=== PATIENT | male | born 1980 | race Caucasian/White ===

== ENCOUNTER 2020-06-24 08:28 | Inpatient (IN) ==
[2020-06-24] MEDS ORDERED: SODIUM CHLORIDE 0.9% 1,000 ML IV STA ×3 (09:07→12:47)
[2020-06-24 09:53] LABS: Alanine Aminotransferase 785 U/L (16-61); Albumin 3.8 G/DL (3.4-5.0); Alkaline Phosphatase 278 U/L (45-117); Blood Urea Nitrogen 14 MG/DL (7-18); Calcium 7.7 MG/DL (8.5-10.1); Carbon Dioxide 6 MMOL/L (21-32); Estimated Glom Filtration Rate 72 ML/MIN; Glucose 126 MG/DL (74-106); Osmolality,Calculated 270.2 MOS/KG (273-304); Sodium 134 MMOL/L (136-145); Total Protein 7.4 G/DL (6.4-8.2)
[2020-06-24 09:55] LABS: Aspartate Amino Transferase 1086 U/L (0-37)
[2020-06-24 10:19] LABS: Basophils # 0.1 10*3/uL (0.0-0.2); Basophils % 0.6 % (0.0-0.8); Eosinophils % 0.2 % (0.00-10.9); Immature Granulocytes % 2.1 %; Immature Granulocytes Absolute 0.37 #; Lymphocytes % 33.5 % (21.2-54.2); Mean Corpuscular HGB Conc 30.6 GM/DL (32-36); Mean Corpuscular Volume 103.8 FL (87-102); Mean Platelet Volume 10.8 FL (9.6-12.0); Monocytes % 9.4 % (1.7-12.7); NRBC # 0.02 10*3/uL; Neutrophils % 54.2 % (38.7-73.9); Platelet Count 217 T/CUMM (130-400); Red Blood Count 4.72 MC/CUMM (3.8-5.5); Red Cell Distribution Width 14.7 % (9.3-17.3)
[2020-06-24 10:30] LABS: Band Neutrophils 3 % (0-10); Lymphocytes 24 % (20-55); Metamyelocytes 1 %; Segmented Neutrophils 58 % (50-85); Total Cells Counted 100
[2020-06-24 10:31] LABS: Platelet Estimate Normal; Polychromasia Slight; Stomatocytes 1+
[2020-06-24] MEDS ORDERED: HYDROmorphone 2 MG/1 ML VIAL IV STA ×2 (10:36→11:37)
[2020-06-24] MEDS ORDERED: ONDANSETRON 4 MG/2 ML VIAL IV ONE ×2 (10:36→11:37)
[2020-06-24] MEDS ORDERED: ONDANSETRON 4 MG/2 ML VIAL ONE (10:37)
[2020-06-24] MEDS ORDERED: HYDROmorphone 2 MG/1 ML VIAL ONE (10:37)
[2020-06-24] MEDS ORDERED: PIPERACILLIN/TAZOBACTAM 3,375 MG in SODIUM CHLORIDE 0.9% 100 ML IV STA ×2 (11:00→11:14)
[2020-06-24] MEDS ORDERED: PIPERACILLIN/TAZOBACTAM 3,375 MG VIAL IV ONE ×2 (11:03→11:07)
[2020-06-24 11:06] LABS: ABG HCO3 1.3 MMOL/L (20-26); ABG Oxygen Saturation 96.3 % (95-100); ABG PO2 165.7 MM HG (80-95); ABG TCO2 1.7 MMOL/L (23-27); Pt O2 Delivery Device Room Air
[2020-06-24 11:08] LABS: ABG Base Excess -34.7 MMOL/L (-2.5-2.5)
[2020-06-24 11:12] LABS: ABG PCO2 11.4 MM HG (35-48); ABG PH 6.685 (7.35-7.45)
[2020-06-24] MEDS ORDERED: SODIUM BICARBONATE 50 MEQ/50 ML VIAL IV STA ×2 (11:12→11:37)
[2020-06-24] MEDS ORDERED: SODIUM CHLORIDE 0.9% 500 ML IV STA ×2 (11:13→11:44)
[2020-06-24 11:23] LABS: Barbiturates Screen,Urine Negative (Negative); Benzodiazepines Screen,Urine Negative (Negative); Cannabinoid Screen,Urine Negative (Negative); Opiate Screen,Urine Negative (Negative); Phencyclidine Screen,Urine Negative (Negative)
[2020-06-24 11:24] LABS: Bacteria,Urine Occasional /HPF (Few); Bilirubin,Urine Negative (Negative); Blood, Urine Moderate mg/dL (Negative); Glucose,Urine (UA) Negative (Negative); Hyaline Casts,Urine 3 /LPF (0-3); Ketones,Urine 20 mg/dL (Negative); Mucus,Urine Occasional /LPF (Occasional); Nitrite,Urine Negative (Negative); Protein,Urine 30 MG/DL; RBC,Urine 1 /HPF (0-4); Squamous Epithelial Cell,Urine Occasional /HPF (0-10); Urine Appearance Slightly Hazy (Clear); Urine Color Yellow (Yellow); Urine Specific Gravity 1.012 (1.001-1.035); Urine Urobilinogen < 2.0 EU/DL (0.2-1.0)
[2020-06-24] MEDS ORDERED: HYDROmorphone 2 MG/1 ML VIAL IM STA (12:00)
[2020-06-24] MEDS ORDERED: VANCOMYCIN INJ 1,250 MG in SODIUM CHLORIDE 0.9% 250 ML IV STA (12:23)
[2020-06-24 13:39] LABS: INR 1.5; PT Patient Result 15.9 SECS (10.5-12.0)
[2020-06-24] MEDS ORDERED: ALBUTEROL 2.5 MG/3 ML NEB RESP TX PRN (13:42)
[2020-06-24] MEDS ORDERED: PANTOPRAZOLE 40 MG VIAL IV SCH (14:00)
[2020-06-24] MEDS ORDERED: ENOXAPARIN 40 MG/0.4 ML SYRINGE SUBCUT SCH (14:00)
[2020-06-24] MEDS ORDERED: VANCOMYCIN INJ 1,250 MG in SODIUM CHLORIDE 0.9% 250 ML IV SCH (14:00)
[2020-06-24] MEDS ORDERED: HALOPERIDOL 5 MG/ML AMP IM PRN (14:33)
[2020-06-24] MEDS: SODIUM BICARB INJ 100 MEQ in DEXTROSE 5% 1,000 ML IV SCH ×2 (15:03→21:35)
[2020-06-24] MEDS ORDERED: HYDROmorphone 2 MG/1 ML VIAL IV PRN (15:04)
[2020-06-24] MEDS: DIAZEPAM 5 MG TABLET PO SCH ×3 (15:05→22:16)
[2020-06-24] MEDS: PANTOPRAZOLE 40 MG VIAL IV SCH (15:05)
[2020-06-24] MEDS: CALCIUM CARBONATE CHEW 500 MG TABLET PO SCH ×3 (15:05→21:55)
[2020-06-24 15:16] LABS: Albumin 2.7 G/DL (3.4-5.0); Calcium 6.6 MG/DL (8.5-10.1); Osmolality,Calculated 279.3 MOS/KG (273-304); Potassium 4.7 MMOL/L (3.5-5.1); Total Protein 5.6 G/DL (6.4-8.2)
[2020-06-24 15:17] LABS: CKMB % 1.1 %; High Sensitive Troponin I* 59.4 ng/L (0-78)
[2020-06-24] MEDS ORDERED: SODIUM BICARBONATE 50 MEQ/50 ML VIAL IV ONE (15:29)
[2020-06-24] MEDS ORDERED: cefTRIAXone 2,000 MG in SODIUM CHLORIDE 0.9% 100 ML IV ONE (16:33)
[2020-06-24] MEDS ORDERED: DIGOXIN 0.5 MG/2 ML AMP IV ONE ×2 (17:19→18:00)
[2020-06-24 17:26] LABS: Albumin 2.7 G/DL (3.4-5.0); Bilirubin,Total 1.4 MG/DL (0.2-1.0); Calcium 6.7 MG/DL (8.5-10.1); Osmolality,Calculated 276.5 MOS/KG (273-304); Potassium 4.9 MMOL/L (3.5-5.1); Total Protein 5.5 G/DL (6.4-8.2)
[2020-06-24] MEDS: CALCIUM GLUCONATE 2,000 MG in SODIUM CHLORIDE 0.9% 100 ML IV SCH ×2 (18:36→22:13)
[2020-06-24] MEDS: SODIUM CHLORIDE 0.9% IV SCH (18:36)
[2020-06-24] MEDS: ACYCLOVIR IV SCH (18:36)
[2020-06-24] MEDS ORDERED: LACTATED RINGERS 2,000 ML IV ONE (19:06)
[2020-06-24 20:00] LABS: ABG HCO3 7.2 MMOL/L (20-26); ABG Oxygen Saturation 93.7 % (95-100); ABG PCO2 24.8 MM HG (35-48); ABG PO2 88.8 MM HG (80-95); ABG TCO2 5.8 MMOL/L (23-27); Allen Test Positive; Pt O2 Delivery Device Room Air
[2020-06-24 20:02] LABS: ABG PH 6.984 (7.35-7.45)
[2020-06-24 20:33] LABS: Albumin 2.3 G/DL (3.4-5.0); Bilirubin,Total 1.6 MG/DL (0.2-1.0); Calcium 6.7 MG/DL (8.5-10.1); Osmolality,Calculated 264.7 MOS/KG (273-304); Potassium 5.1 MMOL/L (3.5-5.1); Total Protein 4.7 G/DL (6.4-8.2)
[2020-06-24 21:02] LABS: Hepatitis B Core IgM Quant 0.15 Index; Hepatitis B Surface Ag Quant < 0.10 Index; Hepatitis B Surface Ag Result Non-Reactive (NonReactive); Hepatitis C Virus Ab Quant 0.11 Index; Hepatitis C Virus Ab Result Non-Reactive (NonReactive)
[2020-06-24] MEDS ORDERED: SODIUM CHLORIDE 0.9% 1,000 ML IV ONE (21:04)
[2020-06-24] MEDS: SODIUM BICARB INJ 150 MEQ in DEXTROSE 5% 850 ML IV SCH ×2 (21:30→21:55)
[2020-06-24] MEDS ORDERED: THIAMINE INJ 100 MG, FOLIC ACID INJ 1 MG, MAGNESIUM SULF INJ 2 GM, MULTIVITAMIN INJ 10 ... IV SCH (22:00)
[2020-06-24] MEDS: ONDANSETRON 4 MG/2 ML VIAL IV PRN (22:00)
[2020-06-24 23:06] LABS: Calcium 6.2 MG/DL (8.5-10.1); Osmolality,Calculated 267.8 MOS/KG (273-304); Potassium 5.1 MMOL/L (3.5-5.1)
[2020-06-24] MEDS ORDERED: LABETALOL 20 MG/4 ML SYRINGE IV ONE (23:24)
[2020-06-24] MEDS: LABETALOL 20 MG/4 ML SYRINGE IV ONE (23:31)
[2020-06-25] MEDS: LABETALOL 20 MG/4 ML SYRINGE IV ONE (00:09)
[2020-06-25 00:38] LABS: ABG Base Excess -11.7 MMOL/L (-2.5-2.5); ABG HCO3 11.7 MMOL/L (20-26); ABG PCO2 22.3 MM HG (35-48); ABG PH 7.339 (7.35-7.45); ABG PO2 148.4 MM HG (80-95); ABG TCO2 12.4 MMOL/L (23-27); Allen Test Positive
[2020-06-25] MEDS: CALCIUM CARBONATE CHEW 500 MG TABLET PO SCH ×6 (01:10→21:32)
[2020-06-25] MEDS: SODIUM CHLORIDE 0.9% IV SCH (01:10)
[2020-06-25] MEDS: ACYCLOVIR IV SCH (01:10)
[2020-06-25] MEDS: ONDANSETRON 4 MG/2 ML VIAL IV PRN ×2 (02:50→17:09)
[2020-06-25] MEDS: DIAZEPAM 5 MG TABLET PO SCH ×2 (02:55→08:05)
[2020-06-25] MEDS: PANTOPRAZOLE 40 MG VIAL IV SCH ×2 (02:55→15:08)
[2020-06-25 03:25] LABS: Albumin 2.2 G/DL (3.4-5.0); Bilirubin,Total 2.4 MG/DL (0.2-1.0); Osmolality,Calculated 266.2 MOS/KG (273-304); Potassium 4.9 MMOL/L (3.5-5.1); Total Protein 4.4 G/DL (6.4-8.2)
[2020-06-25 03:33] LABS: Calcium 5.7 MG/DL (8.5-10.1)
[2020-06-25 03:53] LABS: ABG Base Excess -4.7 MMOL/L (-2.5-2.5); ABG HCO3 20.5 MMOL/L (20-26); ABG Oxygen Saturation 97.2 % (95-100); ABG PCO2 28.7 MM HG (35-48); ABG PH 7.423 (7.35-7.45); ABG PO2 82.4 MM HG (80-95); Allen Test Positive
[2020-06-25] MEDS ORDERED: CALCIUM GLUCONATE 2,000 MG in SODIUM CHLORIDE 0.9% 100 ML IV ONE (04:30)
[2020-06-25] MEDS: SODIUM BICARB INJ 150 MEQ in DEXTROSE 5% 850 ML IV SCH (04:40)
[2020-06-25] MEDS: SODIUM BICARB INJ 100 MEQ in DEXTROSE 5% 1,000 ML IV SCH (04:51)
[2020-06-25 05:13] LABS: Basophils % 0.3 % (0.0-0.8); Eosinophils # 0.2 10*3/uL (0.0-0.87); Eosinophils % 6.8 % (0.00-10.9); Hematocrit 29.1 VOL% (42.0-52.0); Immature Granulocytes % 1.7 %; Immature Granulocytes Absolute 0.06 #; Lymphocytes # 0.6 10*3/uL (1.4-4.0); Lymphocytes % 15.9 % (21.2-54.2); Mean Corpuscular HGB Conc 34.7 GM/DL (32-36); Mean Corpuscular Volume 92.4 FL (87-102); Mean Platelet Volume 9.9 FL (9.6-12.0); Monocytes % 3.1 % (1.7-12.7); NRBC # 0.04 10*3/uL; Neutrophils % 72.2 % (38.7-73.9)
[2020-06-25 05:17] LABS: Hemoglobin 10.1 GM/DL (14.0-18.0); Platelet Count 56 T/CUMM (130-400); Red Blood Count 3.15 MC/CUMM (3.8-5.5); White Blood Count 3.5 T/CUMM (4-12)
[2020-06-25 05:20] LABS: INR 1.6; PT Patient Result 17.2 SECS (10.5-12.0)
[2020-06-25 05:33] LABS: Band Neutrophils 2 % (0-10); Eosinophils 1 % (0-10); Lymphocytes 14 % (20-55); Segmented Neutrophils 81 % (50-85); Total Cells Counted 100
[2020-06-25 05:33] LABS: Albumin 2.1 G/DL (3.4-5.0); Bilirubin,Total 2.5 MG/DL (0.2-1.0); Osmolality,Calculated 268.1 MOS/KG (273-304); Potassium 4.5 MMOL/L (3.5-5.1); Total Protein 4.3 G/DL (6.4-8.2)
[2020-06-25 05:34] LABS: Hypochromasia 1+; Microcytosis 1+; Platelet Estimate Decreased
[2020-06-25 06:16] LABS: Basophils % 0.2 % (0.0-0.8); Hematocrit 34.4 VOL% (42.0-52.0); Immature Granulocytes % 1.7 %; Immature Granulocytes Absolute 0.07 #; Lymphocytes # 0.7 10*3/uL (1.4-4.0); Lymphocytes % 15.6 % (21.2-54.2); Mean Corpuscular Volume 99.1 FL (87-102); Mean Platelet Volume 10.6 FL (9.6-12.0); Monocytes % 4.1 % (1.7-12.7); NRBC # 0.04 10*3/uL; Neutrophils % 78.4 % (38.7-73.9); Platelet Count 57 T/CUMM (130-400); Red Blood Count 3.47 MC/CUMM (3.8-5.5); Red Cell Distribution Width 14.4 % (9.3-17.3); White Blood Count 4.2 T/CUMM (4-12)
[2020-06-25 06:44] LABS: Lactic Acid 8.9 MMOL/L (0.4-2.0)
[2020-06-25 06:51] LABS: Alanine Aminotransferase 555 U/L (16-61); Albumin 2.1 G/DL (3.4-5.0); Alkaline Phosphatase 88 U/L (45-117); Blood Urea Nitrogen 19 MG/DL (7-18); Calcium 6.2 MG/DL (8.5-10.1); Carbon Dioxide 20 MMOL/L (21-32); Estimated Glom Filtration Rate 30 ML/MIN; Glucose 266 MG/DL (74-106); Osmolality,Calculated 265.2 MOS/KG (273-304); Potassium 4.6 MMOL/L (3.5-5.1); Sodium 127 MMOL/L (136-145); Total Protein 4.6 G/DL (6.4-8.2)
[2020-06-25 06:54] LABS: Band Neutrophils 3 % (0-10); Eosinophils 3 % (0-10); Hypochromasia 1+; Lymphocytes 18 % (20-55); Metamyelocytes 5 %; Microcytosis 1+; Nucleated Red Blood Cells 2 (0-5); Segmented Neutrophils 69 % (50-85); Total Cells Counted 100
[2020-06-25 07:04] LABS: Aspartate Amino Transferase 1237 U/L (0-37)
[2020-06-25 08:15] LABS: INR 1.5; PT Patient Result 16.1 SECS (10.5-12.0)
[2020-06-25] MEDS: SODIUM BICARB INJ 50 MEQ in SODIUM CHLORIDE 0.45% 1,000 ML IV SCH ×4 (08:44→23:40)
[2020-06-25] MEDS ORDERED: ACYCLOVIR IV SCH (09:00)
[2020-06-25] MEDS ORDERED: SODIUM CHLORIDE 0.9% IV SCH (09:00)
[2020-06-25] MEDS ORDERED: MAGNESIUM SULF RIDER 2 GM/50 ML PREMIX IV ONE (09:01)
[2020-06-25] MEDS ORDERED: GLUCAGON 1 MG VIAL IM PRN (09:06)
[2020-06-25] MEDS ORDERED: DEXTROSE 50% 25 GM/50 ML VIAL IV PRN (09:06)
[2020-06-25] MEDS: chlordiazePOXIDE 25 MG CAPSULE PO SCH ×2 (09:59→17:09)
[2020-06-25] MEDS: INSULIN LISPRO 100 UNIT/ML SUBCUT SCH ×3 (12:16→20:16)
[2020-06-25] MEDS ORDERED: ENOXAPARIN 30 MG/0.3 ML SYRINGE SUBCUT SCH (14:00)
[2020-06-25 19:17] LABS: CKMB % 0.7 %
[2020-06-25] MEDS: THIAMINE INJ 100 MG, FOLIC ACID INJ 1 MG, MAGNESIUM SULF INJ 2 GM in SODIUM CHLORIDE 0.... IV SCH (21:32)
[2020-06-25] MEDS ORDERED: LABETALOL 20 MG/4 ML SYRINGE IV ONE (23:05)
[2020-06-26] MEDS: chlordiazePOXIDE 25 MG CAPSULE PO SCH ×4 (01:00→20:34)
[2020-06-26] MEDS: CALCIUM CARBONATE CHEW 500 MG TABLET PO SCH ×6 (01:58→21:18)
[2020-06-26] MEDS: PANTOPRAZOLE 40 MG VIAL IV SCH ×2 (03:30→14:52)
[2020-06-26] MEDS ORDERED: LORazepam 2 MG/1 ML VIAL IV ONE (04:09)
[2020-06-26 05:26] LABS: Basophils % 0.1 % (0.0-0.8); Eosinophils % 0.3 % (0.00-10.9); Hematocrit 26.7 VOL% (42.0-52.0); Hemoglobin 9.5 GM/DL (14.0-18.0); Immature Granulocytes % 7.7 %; Immature Granulocytes Absolute 0.58 #; Lymphocytes % 13.5 % (21.2-54.2); Mean Corpuscular HGB Conc 35.6 GM/DL (32-36); Mean Corpuscular Volume 87.8 FL (87-102); Mean Platelet Volume 12.1 FL (9.6-12.0); Monocytes % 2.1 % (1.7-12.7); NRBC # 0.02 10*3/uL; Neutrophils % 76.3 % (38.7-73.9); Platelet Count 43 T/CUMM (130-400); Red Blood Count 3.04 MC/CUMM (3.8-5.5); Red Cell Distribution Width 13.7 % (9.3-17.3); White Blood Count 7.5 T/CUMM (4-12)
[2020-06-26] MEDS: SODIUM BICARB INJ 50 MEQ in SODIUM CHLORIDE 0.45% 1,000 ML IV SCH ×3 (05:30→23:02)
[2020-06-26 05:32] LABS: INR 1.1; PT Patient Result 12.4 SECS (10.5-12.0)
[2020-06-26 05:54] LABS: Albumin 2.1 G/DL (3.4-5.0); Bilirubin,Direct 0.78 MG/DL (0.0-0.20); Bilirubin,Indirect 0.7 MG/DL (0.0-1.0); Bilirubin,Total 1.5 MG/DL (0.2-1.0); Calcium 6.3 MG/DL (8.5-10.1); Osmolality,Calculated 271.4 MOS/KG (273-304); Potassium 3.6 MMOL/L (3.5-5.1); Total Protein 4.6 G/DL (6.4-8.2)
[2020-06-26 06:09] LABS: Band Neutrophils 7 % (0-10); Hypochromasia Slight; Lymphocytes 4 % (20-55); Microcytosis Slight; Platelet Estimate Decreased; Segmented Neutrophils 87 % (50-85); Total Cells Counted 100
[2020-06-26] MEDS: INSULIN LISPRO 100 UNIT/ML SUBCUT SCH ×4 (07:55→20:32)
[2020-06-26] MEDS ORDERED: chlordiazePOXIDE 25 MG CAPSULE PO SCH (09:00)
[2020-06-26] MEDS: MULTIVITAMIN (CENTRUM) TABLET PO SCH (09:40)
[2020-06-26] MEDS: SODIUM CHLORIDE 0.9% 1,000 ML IV SCH ×2 (14:51→21:16)
[2020-06-26] MEDS: THIAMINE INJ 100 MG, FOLIC ACID INJ 1 MG, MAGNESIUM SULF INJ 2 GM in SODIUM CHLORIDE 0.... IV SCH (21:14)
[2020-06-27] MEDS: CALCIUM CARBONATE CHEW 500 MG TABLET PO SCH ×6 (02:01→21:31)
[2020-06-27] MEDS: chlordiazePOXIDE 25 MG CAPSULE PO SCH ×4 (03:05→21:31)
[2020-06-27] MEDS: PANTOPRAZOLE 40 MG VIAL IV SCH ×2 (03:06→14:42)
[2020-06-27] MEDS: SODIUM CHLORIDE 0.9% 1,000 ML IV SCH ×4 (04:31→21:34)
[2020-06-27 05:19] LABS: Basophils % 0.2 % (0.0-0.8); Eosinophils # 0.1 10*3/uL (0.0-0.87); Eosinophils % 0.8 % (0.00-10.9); Hematocrit 25.2 VOL% (42.0-52.0); Hemoglobin 8.8 GM/DL (14.0-18.0); Immature Granulocytes % 2.9 %; Immature Granulocytes Absolute 0.19 #; Lymphocytes # 1.2 10*3/uL (1.4-4.0); Mean Corpuscular HGB Conc 34.9 GM/DL (32-36); Mean Platelet Volume 13.3 FL (9.6-12.0); Monocytes % 6.2 % (1.7-12.7); Neutrophils % 71.9 % (38.7-73.9); Red Cell Distribution Width 14.3 % (9.3-17.3); White Blood Count 6.5 T/CUMM (4-12)
[2020-06-27 05:39] LABS: Bilirubin,Direct 0.66 MG/DL (0.0-0.20); Bilirubin,Indirect 0.8 MG/DL (0.0-1.0); Bilirubin,Total 1.5 MG/DL (0.2-1.0); Calcium 6.8 MG/DL (8.5-10.1); Osmolality,Calculated 286.3 MOS/KG (273-304); Potassium 3.3 MMOL/L (3.5-5.1); Total Protein 4.7 G/DL (6.4-8.2)
[2020-06-27 05:40] LABS: Band Neutrophils 1 % (0-10); Eosinophils 1 % (0-10); Hypochromasia 1+; Lymphocytes 18 % (20-55); Metamyelocytes 1 %; Microcytosis Slight; Segmented Neutrophils 75 % (50-85); Target Cells Slight; Total Cells Counted 100
[2020-06-27 05:41] LABS: Platelet Estimate Decreased
[2020-06-27 05:43] LABS: High Sensitive Troponin I* 142.8 ng/L (0-78)
[2020-06-27] MEDS: INSULIN LISPRO 100 UNIT/ML SUBCUT SCH ×4 (07:45→21:04)
[2020-06-27] MEDS: MULTIVITAMIN (CENTRUM) TABLET PO SCH (09:10)
[2020-06-27] MEDS ORDERED: LOPERAMIDE 2 MG CAPSULE PO PRN (12:33)
[2020-06-27 21:01] LABS: HIT Interpretation Negative (Negative)
[2020-06-27] MEDS: FAMOTIDINE 20 MG TABLET PO SCH (21:31)
[2020-06-28] MEDS: CALCIUM CARBONATE CHEW 500 MG TABLET PO SCH ×6 (02:24→22:22)
[2020-06-28 05:28] LABS: Basophils % 0.6 % (0.0-0.8); Eosinophils # 0.1 10*3/uL (0.0-0.87); Eosinophils % 2.1 % (0.00-10.9); Hematocrit 25.9 VOL% (42.0-52.0); Hemoglobin 8.7 GM/DL (14.0-18.0); Immature Granulocytes % 0.6 %; Immature Granulocytes Absolute 0.03 #; Lymphocytes # 1.3 10*3/uL (1.4-4.0); Lymphocytes % 24.5 % (21.2-54.2); Mean Corpuscular HGB Conc 33.6 GM/DL (32-36); Mean Corpuscular Volume 92.8 FL (87-102); Mean Platelet Volume 11.2 FL (9.6-12.0); Monocytes % 10.3 % (1.7-12.7); Neutrophils % 61.9 % (38.7-73.9); Platelet Count 45 T/CUMM (130-400); Red Blood Count 2.79 MC/CUMM (3.8-5.5); Red Cell Distribution Width 14.7 % (9.3-17.3); White Blood Count 5.3 T/CUMM (4-12)
[2020-06-28 05:49] LABS: Albumin 2.1 G/DL (3.4-5.0); Bilirubin,Total 1.5 MG/DL (0.2-1.0); Calcium 7.2 MG/DL (8.5-10.1); Osmolality,Calculated 297.4 MOS/KG (273-304); Potassium 3.5 MMOL/L (3.5-5.1); Total Protein 5.2 G/DL (6.4-8.2)
[2020-06-28 05:55] LABS: Eosinophils 2 % (0-10); Hypochromasia 1+; Lymphocytes 25 % (20-55); Microcytosis 1+; Platelet Estimate Decreased; Segmented Neutrophils 65 % (50-85); Total Cells Counted 100
[2020-06-28] MEDS: SODIUM CHLORIDE 0.9% 1,000 ML IV SCH ×2 (06:31→11:04)
[2020-06-28] MEDS: chlordiazePOXIDE 25 MG CAPSULE PO SCH ×3 (06:50→21:21)
[2020-06-28] MEDS: INSULIN LISPRO 100 UNIT/ML SUBCUT SCH ×4 (08:32→22:20)
[2020-06-28 08:54] LABS: High Sensitive Troponin I* 83.1 ng/L (0-78)
[2020-06-28] MEDS: FAMOTIDINE 20 MG TABLET PO SCH ×2 (09:35→21:20)
[2020-06-28 09:53] LABS: Platelet Count 37 T/CUMM (130-400)
[2020-06-28] MEDS: LACTATED RINGERS 1,000 ML IV SCH (15:11)
[2020-06-29] MEDS: LACTATED RINGERS 1,000 ML IV SCH ×2 (01:33→11:14)
[2020-06-29] MEDS: CALCIUM CARBONATE CHEW 500 MG TABLET PO SCH ×6 (02:37→22:45)
[2020-06-29 05:27] LABS: Basophils % 0.9 % (0.0-0.8); Eosinophils # 0.1 10*3/uL (0.0-0.87); Eosinophils % 2.6 % (0.00-10.9); Hematocrit 24.6 VOL% (42.0-52.0); Hemoglobin 8.1 GM/DL (14.0-18.0); Immature Granulocytes % 2.4 %; Immature Granulocytes Absolute 0.11 #; Lymphocytes # 1.8 10*3/uL (1.4-4.0); Lymphocytes % 39.3 % (21.2-54.2); Mean Corpuscular HGB Conc 32.9 GM/DL (32-36); Mean Corpuscular Volume 93.2 FL (87-102); Mean Platelet Volume 12.1 FL (9.6-12.0); Monocytes % 16.4 % (1.7-12.7); Neutrophils % 38.4 % (38.7-73.9); Platelet Count 61 T/CUMM (130-400); Red Blood Count 2.64 MC/CUMM (3.8-5.5); Red Cell Distribution Width 14.5 % (9.3-17.3); White Blood Count 4.6 T/CUMM (4-12)
[2020-06-29 05:46] LABS: Albumin 2.1 G/DL (3.4-5.0); Bilirubin,Total 0.7 MG/DL (0.2-1.0); Calcium 7.3 MG/DL (8.5-10.1); Osmolality,Calculated 288.8 MOS/KG (273-304); Potassium 2.9 MMOL/L (3.5-5.1)
[2020-06-29] MEDS: chlordiazePOXIDE 25 MG CAPSULE PO SCH ×3 (06:41→22:46)
[2020-06-29 07:40] LABS: Eosinophils 2 % (0-10); Lymphocytes 42 % (20-55); Metamyelocytes 1 %; Segmented Neutrophils 44 % (50-85); Total Cells Counted 100
[2020-06-29 07:41] LABS: Target Cells Few
[2020-06-29 07:42] LABS: Anisocytosis 1+; Platelet Estimate Decreased; Polychromasia Slight; Stomatocytes Few
[2020-06-29] MEDS: INSULIN LISPRO 100 UNIT/ML SUBCUT SCH ×4 (10:21→22:44)
[2020-06-29] MEDS: FAMOTIDINE 20 MG TABLET PO SCH ×2 (10:26→22:46)
[2020-06-29] MEDS ORDERED: POTASSIUM CHLORIDE RIDER 20 MEQ/100 ML PREMIX IV PRN (11:15)
[2020-06-29] MEDS ORDERED: POTASSIUM CHLORIDE RIDER 10 MEQ/100 ML PREMIX IV PRN ×2 (11:15)
[2020-06-29] MEDS: POTASSIUM CHLORIDE 20 MEQ TABLET PO PRN ×2 (12:19→19:07)
[2020-06-29] MEDS ORDERED: POTASSIUM CHLORIDE 20 MEQ TABLET PO ONE (14:00)
[2020-06-30] MEDS: CALCIUM CARBONATE CHEW 500 MG TABLET PO SCH ×6 (02:24→21:14)
[2020-06-30 05:02] LABS: Basophils % 0.9 % (0.0-0.8); Eosinophils # 0.1 10*3/uL (0.0-0.87); Eosinophils % 2.1 % (0.00-10.9); Hemoglobin 8.5 GM/DL (14.0-18.0); Immature Granulocytes % 5.3 %; Immature Granulocytes Absolute 0.23 #; Lymphocytes % 46.7 % (21.2-54.2); Mean Corpuscular Volume 90.6 FL (87-102); Mean Platelet Volume 12.3 FL (9.6-12.0); Monocytes % 18.4 % (1.7-12.7); NRBC # 0.02 10*3/uL; Neutrophils % 26.6 % (38.7-73.9); Platelet Count 111 T/CUMM (130-400); Red Blood Count 2.76 MC/CUMM (3.8-5.5); Red Cell Distribution Width 14.2 % (9.3-17.3); White Blood Count 4.4 T/CUMM (4-12)
[2020-06-30 05:15] LABS: Albumin 2.2 G/DL (3.4-5.0); Bilirubin,Total 0.5 MG/DL (0.2-1.0); Calcium 7.8 MG/DL (8.5-10.1); Potassium 3.1 MMOL/L (3.5-5.1); Total Protein 5.2 G/DL (6.4-8.2)
[2020-06-30 05:48] LABS: Band Neutrophils 1 % (0-10); Eosinophils 5 % (0-10); Hypochromasia 1+; Lymphocytes 47 % (20-55); Microcytosis 1+; Polychromasia Slight; Segmented Neutrophils 30 % (50-85); Total Cells Counted 100
[2020-06-30 05:49] LABS: Atypical Lymphocytes Few; Platelet Estimate Adequate
[2020-06-30] MEDS: chlordiazePOXIDE 25 MG CAPSULE PO SCH ×2 (06:08→13:51)
[2020-06-30] MEDS: INSULIN LISPRO 100 UNIT/ML SUBCUT SCH ×4 (08:48→20:17)
[2020-06-30] MEDS: FAMOTIDINE 20 MG TABLET PO SCH ×2 (09:47→21:13)
[2020-06-30] MEDS: POTASSIUM CHLORIDE 20 MEQ TABLET PO SCH ×2 (09:48→12:03)
[2020-06-30] MEDS ORDERED: MAGNESIUM SULF RIDER 2 GM/50 ML PREMIX IV PRN (15:11)
[2020-06-30] MEDS: chlordiazePOXIDE 10 MG CAPSULE PO SCH ×2 (17:18→21:13)
[2020-06-30] MEDS: LACTATED RINGERS 1,000 ML IV SCH ×2 (17:19→18:02)
[2020-06-30] MEDS: MAGNESIUM SULF RIDER 4 GM/100 ML PREMIX IV PRN (17:25)
[2020-07-01] MEDS: CALCIUM CARBONATE CHEW 500 MG TABLET PO SCH ×6 (01:22→21:42)
[2020-07-01 05:51] LABS: Basophils % 0.9 % (0.0-0.8); Eosinophils # 0.1 10*3/uL (0.0-0.87); Eosinophils % 1.9 % (0.00-10.9); Hematocrit 26.4 VOL% (42.0-52.0); Hemoglobin 8.9 GM/DL (14.0-18.0); Immature Granulocytes % 4.5 %; Immature Granulocytes Absolute 0.19 #; Mean Corpuscular HGB Conc 33.7 GM/DL (32-36); Monocytes % 17.6 % (1.7-12.7); Neutrophils % 27.1 % (38.7-73.9); Platelet Count 154 T/CUMM (130-400); Red Cell Distribution Width 14.4 % (9.3-17.3); White Blood Count 4.3 T/CUMM (4-12)
[2020-07-01 06:09] LABS: Calcium 8.7 MG/DL (8.5-10.1); Osmolality,Calculated 276.4 MOS/KG (273-304); Potassium 3.6 MMOL/L (3.5-5.1)
[2020-07-01] MEDS: LACTATED RINGERS 1,000 ML IV SCH ×2 (06:20→17:44)
[2020-07-01 07:01] LABS: Atypical Lymphocytes Few; Band Neutrophils 1 % (0-10); Eosinophils 4 % (0-10); Lymphocytes 49 % (20-55); Segmented Neutrophils 26 % (50-85); Total Cells Counted 100
[2020-07-01 07:02] LABS: Hypochromasia 1+; Microcytosis 1+; Platelet Estimate Adequate; Polychromasia Slight; Target Cells Slight
[2020-07-01] MEDS: INSULIN LISPRO 100 UNIT/ML SUBCUT SCH ×4 (08:36→21:46)
[2020-07-01] MEDS: chlordiazePOXIDE 10 MG CAPSULE PO SCH ×4 (09:25→21:42)
[2020-07-01] MEDS: FAMOTIDINE 20 MG TABLET PO SCH ×2 (09:25→21:42)
[2020-07-01] MEDS ORDERED: DIAZEPAM 5 MG TABLET PO ONE (12:29)
[2020-07-01] MEDS: VENLAFAXINE XR 75 MG CAPSULE PO SCH (21:42)
[2020-07-02] MEDS: LACTATED RINGERS 1,000 ML IV SCH (03:46)
[2020-07-02] MEDS: CALCIUM CARBONATE CHEW 500 MG TABLET PO SCH ×3 (05:07→09:40)
[2020-07-02] MEDS ORDERED: chlordiazePOXIDE 10 MG CAPSULE PO SCH (09:00)
[2020-07-02 09:10] LABS: Basophils % 0.7 % (0.0-0.8); Eosinophils # 0.1 10*3/uL (0.0-0.87); Eosinophils % 1.1 % (0.00-10.9); Hematocrit 28.9 VOL% (42.0-52.0); Hemoglobin 9.3 GM/DL (14.0-18.0); Immature Granulocytes % 2.6 %; Immature Granulocytes Absolute 0.14 #; Lymphocytes # 1.7 10*3/uL (1.4-4.0); Mean Corpuscular HGB Conc 32.2 GM/DL (32-36); Mean Corpuscular Volume 94.1 FL (87-102); Mean Platelet Volume 11.5 FL (9.6-12.0); Monocytes % 12.7 % (1.7-12.7); Neutrophils % 50.9 % (38.7-73.9); Platelet Count 247 T/CUMM (130-400); Red Blood Count 3.07 MC/CUMM (3.8-5.5); Red Cell Distribution Width 14.8 % (9.3-17.3); White Blood Count 5.4 T/CUMM (4-12)
[2020-07-02] MEDS: INSULIN LISPRO 100 UNIT/ML SUBCUT SCH ×2 (09:25→12:25)
[2020-07-02 09:28] LABS: Albumin 2.7 G/DL (3.4-5.0); Bilirubin,Total 0.7 MG/DL (0.2-1.0); Calcium 9.2 MG/DL (8.5-10.1); Osmolality,Calculated 273.8 MOS/KG (273-304); Potassium 3.8 MMOL/L (3.5-5.1); Total Protein 6.4 G/DL (6.4-8.2)
[2020-07-02] MEDS: VENLAFAXINE XR 75 MG CAPSULE PO SCH (09:39)
[2020-07-02] MEDS: FAMOTIDINE 20 MG TABLET PO SCH (09:40)
[2020-07-02] MEDS: MAGNESIUM SULF RIDER 4 GM/100 ML PREMIX IV PRN (09:50)
[2020-07-02 12:32] VITALS: BP 165/109
== END 2020-07-02 14:17 | disposition home or self-care (01) | DRG 896 ==
LOC: N.ED 08:28 → SUATTDRO 13:42 → N.EDINP 13:42 → N.ICU 14:01 → N.4E 06-26 09:52
PROVIDERS: ADMIT Internal Medicine; ATTEND Internal Medicine